=== PATIENT | male | born 1940 | race Caucasian/White ===

== ENCOUNTER → 2017-09-28 | Outpatient (CLI) | payer MEDICARE ==
--- NOTE | 2017-09-28 15:51 | CT ---
EXAMINATION TYPE: CT angio chest DATE OF EXAM: 09/28/2017 COMPARISON: NONE HISTORY: SOB AND COUGH CT DLP: 371.9 mGycm. Automated Exposure Control for Dose Reduction was Utilized. CONTRAST: CTA scan of the thorax is performed with IV Contrast, patient injected with 67 mL of Omnipaque 350, p ulmonary embolism protocol. MIP Images are created on CT scanner and reviewed. FINDINGS: LUNGS: The patient's known right upper lobe carcinoma is elongated and measures up to 4.0 x 3.0 x 6.3 cm creating traction bronchiectasis. Findings are superimposed upon mild background centrilobular em physematous changes. Scattered subpleural reticular opacities likely relate to atelectasis. Right low er lobe basilar pulmonary nodule measures 1.3 x 1.4 cm. MEDIASTINUM: There is satisfactory enhancement of the pulmonary artery and its branches, there is no CT evidence for pulmonary embolism. Pretracheal and right paratracheal adenopathy is present within t he mediastinum measuring up to 1.2 cm in short axis in addition to subcarinal adenopathy measuring up to 1.2 cm in short axis and multiple prominent right hilar lymph nodes measuring up to 9 mm in short axis. Small supraclavicular lymph nodes are seen bilaterally that are not enlarged. No axillary juanpablo opathy is present. There is a trace pericardial effusion and cardiomegaly. There is enlargement of th e ascending thoracic aorta measuring up to 4.1 cm. OTHER: Old healed anterior rib fractures are seen of ribs 3, 4, 5, and 6 on the left. Approximately 2 .2 cm right upper pole renal cyst is present. Moderate multilevel degenerative changes of the thoraci c spine are noted. IMPRESSION: 1. No evidence of pulmonary embolism. 2. Right upper lobe known pulmonary carcinoma measures up to 6.3 cm in craniocaudal dimension and cre ates traction bronchiectasis. 3. Right basilar pulmonary nodule measures up to 1.4 cm. 4. Mild mediastinal adenopathy as described above. 5. Mild background centrilobular emphysematous changes and subpleural reticular opacities likely rela jennifer to subsegmental scattered atelectasis. 6. Minimal ascending thoracic aortic aneurysm measuring up to 4.1 cm. 7. Old healed anterior rib fractures of ribs 3, 4, 5 and 6 on the left.
== END | disposition home or self-care (01) ==
LOC: RADCTMAIN 14:39
PROVIDERS: ATTEND Internal Medicine Hematology & Oncology
DX: I71.2 Thoracic aortic aneurysm, without rupture (principal); J43.2 Centrilobular emphysema; R91.1 Solitary pulmonary nodule; R59.0 Localized enlarged lymph nodes; C34.91 Malignant neoplasm of unspecified part of right bronchus or lung
CPT/HCPCS: 71275; Q9967

== ENCOUNTER → 2017-10-19 | Outpatient (CLI) | payer MEDICARE ==
[2017-10-19 12:05] LABS: Blood Urea Nitrogen 11 mg/dL (9-20)
--- NOTE | 2017-10-19 15:10 | CT ---
EXAMINATION TYPE: CT ChestAbdPelvis w con DATE OF EXAM: 10/19/2017 COMPARISON: 09/28/2007 HISTORY: Follow up lung cancer CT DLP: 957 mGycm CONTRAST: CT scan of the chest, abdomen and pelvis is performed with Oral Contrast and with IV Contrast, patien t injected with 100 mL of O[address] 300. CT Chest: LUNGS: Right apical mass density persists and measures 3.7 x 2.8 cm x 5.3 cm versus 4.0 x 3.0 x 6.3 c m previously. No new masses are identified. Hyperinflation compatible with COPD. No evidence for pleu ral effusion. Mild basilar subpleural fibrosis. MEDIASTINUM: Thoracic aorta is of normal caliber. The heart is not enlarged. Subcarinal adenopathy measuring 1.1 cm. Subcentimeter right paratracheal lymph nodes and subcentimeter right hilar lymph no de. HILAR STRUCTURES: No evidence for mass. No hilar adenopathy is appreciated. OTHER: No significant abnormality. CONTRAST CT ABDOMEN AND PELVIS FINDINGS: LIVER/GB: No calcified gallstones. No space occupying hepatic lesion. Biliary tree is of normal ca liber. PANCREAS: No inflammation. No distinct mass. SPLEEN: No splenic enlargement. No lesion seen. ADRENALS: No nodule. No thickening. KIDNEYS/BLADDER: No hydronephrosis. No nephrolithiasis. 2.8 cm cyst the mid to upper pole right kid hitesh. No solid renal lesions detected. BOWEL: Normal appendix. Normal bowel caliber. No inflammation. GENITAL ORGANS: Prostate gland enlargement.. LYMPH NODES: No greater than 1cm abdominal or pelvic lymph nodes are appreciated. AORTA: No significant abnormality. OSSEOUS STRUCTURES: Degenerative changes thoracic and lumbar spine. Mild loss of height superior endp late of T10, T11 and L5 and to a lesser extent L4 uncertain chronicity and/or etiology. No definite b anusha destructive process is seen at this time. Bone cyst left femoral head.. OTHER: No significant additional abnormality is seen. IMPRESSION: 1. Right upper lobe mass persists although slightly smaller in size. 2. Mild right sided subcarinal adenopathy. 3. No evidence for metastatic disease to the abdomen or pelvis.
== END | disposition home or self-care (01) ==
LOC: RADCTMAIN 11:06
PROVIDERS: ATTEND Internal Medicine Hematology & Oncology
DX: C34.91 Malignant neoplasm of unspecified part of right bronchus or lung (principal)
CPT/HCPCS: 82565; 84520; 71260; 74177; 36415; Q9967

== ENCOUNTER → 2018-01-10 | Outpatient (CLI) | payer MEDICARE ==
[2018-01-10 12:07] LABS: Blood Urea Nitrogen 13 mg/dL (9-20)
--- NOTE | 2018-01-10 14:48 | CT ---
EXAMINATION TYPE: CT ChestAbdPelvis w con DATE OF EXAM: 01/10/2018 COMPARISON: 10/19/2017 HISTORY: 77-year-old male follow up study for known lung CA. Suspect metastases. TECHNIQUE: Contiguous axial scanning of the chest, abdomen, and pelvis performed with IV Contrast, pa tient injected with 100 mL of Isovue 300. Delayed images through the kidneys were obtained. Coronal/s agittal reconstructions performed. CT DLP: 1635 mGycm Automated exposure control for dose reduction was used. FINDINGS: Chest: Heart is normal size with small pericardial effusion measuring 1 cm tic versus 6 mm, previously. Exte nsive coronary vessel calcifications are present and are remarkable for coronary disease. Ascending aorta ectatic and 3.9 cm. Bovine configuration to the aortic arch with mild aortic arch samina cifications. Mildly aneurysmal upper descending thoracic aorta at 3.5 cm. Large caliber to the main right and left pulmonary arteries are 2.8 cm each suggestive of underlying pulmonary arterial hypertension. Scattered small mediastinal lymph nodes are unchanged. No thoracic lymphadenopathy by CT size criteri a. There is increasing size of the 2.4 cm right basilar pulmonary nodule. This appeared as a minimal pat paz density on the 10/19/2017 study. Focal consolidation in the right apex measuring 3.9 cm versus 3.8 cm, previously. Density tracks preethi g the bronchovascular bundles centrally to the right suprahilar region, similar to prior exam. New 1.4 cm subpleural nodularity at the far peripheral costophrenic angle on the right, axial image 5 2. There is some interstitial thickening at both lung bases suggesting fibrosis. Otherwise, no consolida tion or pleural effusion. ABDOMEN: Numerous new hypodense lesions within both hepatic lobes numbering approximately 15-20, largest measu ring 1.6 cm, axial image 48. No biliary ductal dilatation. Portal venous system is patent. Gallbladder, adrenal glands, left kidney, spleen, and pancreas show no gross abnormality. 2.8 cm cortical cyst posterior upper pole right kidney. Moderate atherosclerotic calcifications throughout the abdominal aorta and iliac arteries. There is m ild aneurysm of the infrarenal abdominal aorta at 3.0 cm not significantly changed from prior. No dilated small bowel, free fluid, or free air. There is moderate stool throughout the colon without pericolonic inflammatory change No mesenteric or retroperitoneal lymphadenopathy seen. Pelvis: Circumferential bladder wall thickening. There is prostatomegaly 6.1 cm wide and impression onto the posterior bladder base. No abnormal fluid collection in the pelvis or pelvic lymphadenopathy seen. Bones: Diffuse osteopenia. Degenerative changes at the hips and pubic symphysis and both SI joints. Degenerative changes lower lumbar spine with grade 1 anterolisthesis at L4-L5 and several nodes at L5 . Chronic left-sided rib fracture deformities. No osseous destructive process identified. IMPRESSION: 1. RELATIVELY STABLE FOCAL CONSOLIDATION, POSSIBLE NEOPLASM RIGHT UPPER LOBE MEASURING 3.9 CM. HOWEVE R, THERE IS INCREASING SIZE OF A 2.4 CM RIGHT BASILAR PULMONARY NODULE AND A NEW 1.4 CM SUBPLEURAL PU LMONARY NODULE TUCKED AWAY IN THE RIGHT COSTOPHRENIC ANGLE. FINDINGS HIGHLY SUSPICIOUS FOR METASTATIC DISEASE. 2. NUMEROUS NEW HEPATIC LESIONS MEASURING UP TO 1.6 CM ALSO SUGGESTIVE OF METASTATIC DISEASE. 3. PULMONARY ARTERIAL HYPERTENSION, CAD, INCREASING SMALL PERICARDIAL EFFUSION (1 CM), MILD ANEURYSM INFRARENAL ABDOMINAL AORTA AT 3 CM, PROSTATOMEGALY (6.1 CM WIDE), AND CIRCUMFERENTIAL BLADDER WALL TH ICKENING PROBABLY RELATING TO BLADDER WALL HYPERTROPHY FROM BPH.
== END | disposition home or self-care (01) ==
LOC: RADCTMAIN 11:24
PROVIDERS: ATTEND Internal Medicine Hematology & Oncology
DX: C34.91 Malignant neoplasm of unspecified part of right bronchus or lung (principal); K76.89 Other specified diseases of liver; I25.10 Atherosclerotic heart disease of native coronary artery without angina pectoris; I27.21 Secondary pulmonary arterial hypertension; I31.3 Pericardial effusion (noninflammatory); I71.4 Abdominal aortic aneurysm, without rupture; N40.0 Benign prostatic hyperplasia without lower urinary tract symptoms; N32.89 Other specified disorders of bladder
CPT/HCPCS: 82565; 84520; 71260; 74177; 36415; Q9967

== ENCOUNTER → 2018-03-07 | Outpatient (CLI) | payer MEDICARE ==
[2018-03-07 11:22] LABS: Blood Urea Nitrogen 9 mg/dL (9-20)
--- NOTE | 2018-03-07 15:37 | CT ---
EXAMINATION TYPE: CT ChestAbdPelvis w con DATE OF EXAM: 03/07/2018 COMPARISON: Prior CT chest abdomen pelvis 01/10/2018 HISTORY: Lung cancer CT DLP: 1560 mGycm Automated exposure control for dose reduction was used. CONTRAST: CT scan of the chest, abdomen and pelvis is performed with Oral Contrast and with IV Contrast, patien t injected with 100 ml mL of Isovue 300. FINDINGS: LUNGS: The spherical area of increased attenuation in the right upper lobe with associated air bronch ograms and pleural extensions measures approximately 4.3 cm in transverse dimension which is increase d slightly from prior when it measured 4.1 centimeters. There is been interval development of a small right pleural effusion. Interval development of right hilar adenopathy, lobular soft tissue density extends along the right lower lobe bronchi on image 43 measuring approximately 1.5 cm x 2 cm although accurate measurement somewhat limited by configuration. There is a spiculated mass at the right cost ophrenic angle measuring approximately 3.6 x 3 cm spiculations extending to the pleural margin, abnor mal pleural soft tissue present at this level may represent pleural studding measuring approximately 3 cm in AP dimension by 1.2 cm in transverse dimension on axial image 58 right lower lobe and is is n ew. Subpleural calcification on axial image 54 in the left lower lobe, there is some minimal intersti tial changes. MEDIASTINUM: There are no greater than 1 cm hilar or mediastinal lymph nodes. Small pericardial effus ion is seen. There are coronary artery calcifications. AORTA: No significant abnormality is seen. OTHER: No additional significant abnormality is seen. LIVER/GB: Liver shows diffuse heterogeneous density which is developed in the interval, the previousl y identified underlying masses are clear, there may be interval development of numerous masses in the interval of varying sizes. Gallbladder is normal. PANCREAS: No significant abnormality is seen. SPLEEN: No significant abnormality is seen. ADRENALS: No significant abnormality is seen. KIDNEYS: No significant interval change is seen. REPRODUCTIVE ORGANS: Prostate is enlarged. BOWEL: No significant abnormality is seen. FREE AIR: No Free Air visible. ASCITES: Minimal fluid in the pelvis.. RETROPERITONEAL ADENOPATHY: No retroperitoneal adenopathy is seen. LYMPH NODES: No greater than 1 cm abdominal or pelvic lymph nodes are appreciated. URINARY BLADDER: No significant abnormality is seen. PELVIC ADENOPATHY: None visualized. OSSEOUS STRUCTURES: Old left-sided rib fractures noted, nonunion present at eighth rib posterior lat erally on the left. IMPRESSION: Interval disease progression.
== END ==
LOC: RADCTMAIN 10:49
PROVIDERS: ATTEND Internal Medicine Hematology & Oncology
DX: Z03.89 Encounter for observation for other suspected diseases and conditions ruled out (principal); C34.91 Malignant neoplasm of unspecified part of right bronchus or lung
CPT/HCPCS: 82565; 84520; 71260; 74177; 36415; Q9967

== ENCOUNTER → 2018-03-22 | Outpatient (CLI) | payer MEDICARE ==
--- NOTE | 2018-03-22 22:23 | MR ---
EXAMINATION TYPE: MR brain wo/w con DATE OF EXAM: 03/22/2018 COMPARISON: NONE HISTORY: Headache sudden onset per order. Bilateral hearing loss with history of metastatic lung canc er per patient. TECHNIQUE: Multiplanar, multisequence imaging of the brain and brainstem is performed without and wit h IV contrast. The patient is injected with 7.5 cc of gadolinium for the study. FINDINGS: Exam noted suboptimal as patient had claustrophobia and fast sequence imaging had to be pe rformed to compensate for motion. Diffusion weighted images demonstrate no evidence of a recent infarct . There is no or a some extra-axial fluid collection. There is ventricular and sulcal prominence consis tent with mild age-related cerebral atrophy. There are some scattered foci T2 hyperintensity seen thr oughout the white matter bilaterally. Approximately 15-20 scattered small lesions are present. Lesion s are most likely on basis of products of chronic small vessel ischemic change in patient this age. Midline structures demonstrate normal morphology. The craniocervical junction is suboptimally evalua jennifer due to motion artifact particularly upper cervical spine. There is a rim-enhancing 1.3 cm metasta tic lesion in the left lateral cerebellum axial image 8. There is 6 mm heterogeneous rim enhancing ri ght parietal lesion adjacent to ventricle axial image 15. There is 8mm heterogeneous enhancing lesion inferior left cerebellum near the midline seen best on coronal image 27. Vasogenic edema is noted on T2 weighted images at all levels. 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 The visualized sinus es are clear and the globes are intact. 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 There is background mild diffuse cerebral atrophy and mild chronic small vessel ischemic change incidentally n oted.
== END | disposition home or self-care (01) ==
LOC: RADMRIMAIN 06:28
PROVIDERS: ATTEND Internal Medicine Hematology & Oncology
DX: C79.31 Secondary malignant neoplasm of brain (principal); G31.9 Degenerative disease of nervous system, unspecified; I67.82 Cerebral ischemia
CPT/HCPCS: 70553; A9581

== ENCOUNTER → 2018-03-23 | Outpatient (CLI) | payer MEDICARE ==
--- NOTE | 2018-03-23 15:18 | NM ---
EXAMINATION TYPE: NM bone scan whole body DATE OF EXAM: 03/23/2018 COMPARISON: CT chest abdomen pelvis 03/07/2018 HISTORY: Lung cancer, back pain Delayed whole-body scanning was performed following the injection of 22.2 mCi Tc 99m MDP. Images acq uired 3 hours post injection. FINDINGS: Mild uptake at the lower left ribs is noted compatible with old fractures. Uptake seen within the cos tophrenic angle level on the left at T11 degenerative change. Uptake within the shoulders, sternoclav icular joints, hands is likely due to osteoarthritic change. Soft tissue uptake is normal. IMPRESSION: No abnormality evident to suggest metastatic disease.
== END ==
LOC: RADNMMAIN 10:49
PROVIDERS: ATTEND Internal Medicine Hematology & Oncology
DX: C34.91 Malignant neoplasm of unspecified part of right bronchus or lung (principal); M54.5 Low back pain
CPT/HCPCS: 78306; A9503